=== PATIENT | female | born 1985 | race Caucasian/White ===

== ENCOUNTER 2023-08-07 15:02 | Emergency (ER) | payer OTHER, SELFPAY ==
[2023-08-07] VITALS (9 sets, daily range): BP systolic 137–160; BP diastolic 91–114; PULSE 80–106; RESP 16–20; TEMP 36.2–36.9; O2SAT 96–100
--- NOTE | ~2023-08-07 | CT_ITS ---
EXAMINATION: CT abdomen pelvis w con DATE: 08/07/2023 17:50 INDICATION: Right flank pain. TECHNIQUE: Computed tomography (CT) of the abdomen and pelvis was performed with 100 mL Omnipaque 350 intravenous contrast. Automated exposure control and iterative reconstruction technique were employe d. The dose-length product was 351.12 mGy-cm. COMPARISON: None. FINDINGS: The visualized portions of the lung bases demonstrate mild atelectasis. No pleural effusion . The heart size is normal. No pericardial effusion. The liver, gallbladder, spleen, pancreas, and ad renal glands are normal. There is a 3 mm stone in right kidney. There are cysts in left kidney measur ing up to 13 mm. There is cortical thinning of left kidney. There are no dilated loops of bowel. The appendix is normal. There are no pathologically enlarged lymph nodes. There is no free intraperitonea l fluid. There is mild thoracic and lumbar spondylosis. There is mild chronic height loss of multiple vertebral bodies. IMPRESSION: 1. No etiology for the patient's symptoms. Reviewed, dictated and finalized at location E.
--- NOTE | 2023-08-07 17:06 | ED.ABDPAIN ---
HPI - Abdominal Pain General Chief Complaint: Abdominal Pain <Nasir To PA-C - Last Filed: 08/07/23 17:08> Stated Complaint: kidney stone <Nasir To PA-C - Last Filed: 08/07/23 17:08> Time Seen by Provider: 08/07/23 17:06 <Nasir To PA-C - Last Filed: 08/07/23 17:08> Focused HPI: This is a 38-year-old female who presents to the ED with chief complaint of right flank pain beginning 3-4 days ago and worse today. Reports it has been increasing in severity. She does note some urinary urgency with difficulty fully voiding. Denies hematuria or dysuria. Reports chills but no recorded fevers. States she has had kidney stones in the past that got infected. Endorses nausea but no vomiting. Denies chest pain, shortness of breath, cough, diarrhea. GENERAL: Well-appearing, well-nourished, and in no acute distress. HEAD: Normocephalic, atraumatic. CHEST: Clear to auscultation. No respiratory distress. HEART: Regular rate and rhythm. ABD: Right flank tenderness present. Negative left flank tenderness. Soft, otherwise nontender NEURO: Alert and oriented x3. Patient screened in triage and initial orders placed. Additional care and disposition to be based upon diagnostic testing and treatment. <Nasir To PA-C - Last Filed: 08/07/23 17:08> Focused HPI: This is a 38-year-old female who presents to the ED with chief complaint of right flank pain beginning 3-4 days ago and worse today. Reports it has been increasing in severity. She does note some urinary urgency with difficulty fully voiding. Denies hematuria or dysuria. Reports chills but no recorded fevers. States she has had kidney stones in the past that got infected. Endorses nausea but no vomiting. Denies chest pain, shortness of breath, cough, diarrhea. GENERAL: Well-appearing, well-nourished, and in no acute distress. HEAD: Normocephalic, atraumatic. CHEST: Clear to auscultation. No respiratory distress. HEART: Regular rate and rhythm. ABD: Right flank tenderness present. Negative left flank tenderness. Soft, otherwise nontender NEURO: Alert and oriented x3. Patient screened in triage and initial orders placed. Additional care and disposition to be based upon diagnostic testing and treatment. <Mel Escobar MD - Last Filed: 08/07/23 20:30> Source: patient <Nasir To PA-C - Last Filed: 08/07/23 17:08> Mode of arrival: ambulatory <Nasir To PA-C - Last Filed: 08/07/23 17:08> Limitations: no limitations <Nasir To PA-C - Last Filed: 08/07/23 17:08> Related Data Allergies/Adverse Reactions: Allergies Allergy/AdvReac Type Severity Reaction Status Date / Time adhesive tape AdvReac Rash Verified 08/07/23 17:27 droperidol AdvReac Other Verified 08/07/23 17:27 sulfamethoxazole AdvReac Nausea and Verified 08/07/23 17:25 [From Bactrim] Vomiting trimethoprim [From Bactrim] AdvReac Nausea and Verified 08/07/23 17:25 Vomiting <Nasir To PA-C - Last Filed: 08/07/23 17:08> Review of Systems Review of Systems: All systems are reviewed and are negative unless stated otherwise in the HPI. <Mel Escobar MD - Last Filed: 08/07/23 20:30> Exam Narrative: General: Alert, awake, afebrile, in no acute distress. HEENT: PERRL, no rhinorrhea, no post nasal drip, oropharynx clear. Neck: Trachea midline, no JVD, no lymphadenopathy. Cardiovascular: Regular rate and rhythm, no murmurs, rubs or gallops, no peripheral edema. Respiratory: Clear to auscultation bilaterally, no tachypnea, no wheezing, no rhonchi, no rubs, no respiratory distress. Abdomen: Soft, nontender, nondistended, no rebound, no guarding, no peritoneal signs. Musculoskeletal: No joint swelling or deformity, normal muscle tone, right thoracic region paraspinal reproducible tenderness to palpation. Skin: No rashes or petechia, no signs of infection. Psychiatric: Alert and oriented, normal behavior and judgment for
[2023-08-07 17:18] LABS: Basophils Absolute Auto 0.1 K/mm3 (0.0-0.1); Basophils Percent Auto 0.5 % (0.2-1.2); Eosinophils Absolute Auto 0.1 K/mm3 (0-0.3); Eosinophils Percent Auto 0.7 % (0-4.4); Hematocrit 40.2 % (37.0-47.0); Hemoglobin 13.3 g/dL (12.0-15.0); Immature Granulocyte Absolute 0.13 K/mm3 (0.00-0.031); Immature Granulocyte Percent A 0.7 % (0-0.5); Lymphocytes Absolute Auto 4.85 K/mm3 (0.9-3.2); Lymphocytes Percent Auto 25.6 % (18.3-44.2); Mean Corpuscular HGB Conc 33.1 g/dl (32-36); Mean Corpuscular Volume 93.7 fl (80-100); Mean Platelet Volume 10.3 fl (7.4-10.4); Monocytes Absolute Auto 1.2 K/mm3 (0.1-0.6); Monocytes Percent Auto 6.1 % (2.6-8.5); Neutrophils Absolute Auto 12.6 K/mm3 (1.3-6.7); Neutrophils Percent Auto 66.4 % (45.5-73.1); Platelet Count Result 375 k/mm3 (150-375); Red Blood Count 4.29 M/mm3 (4.2-5.4)
[2023-08-07] MEDS: ONDANSETRON INJ 4 MG/2 ML VIAL IV PUSH (17:20)
[2023-08-07 17:28] LABS: Alanine Aminotransferase 16 U/L (6-35); Albumin Level 4.7 g/dL (3.5-5.1); Alkaline Phosphatase 46 U/L (38-126); Anion Gap 7 mmol/L (4-12); Aspartate Amino Transferase 17 U/L (14-36); Bilirubin,Total 0.8 mg/dL (0.2-1.3); Blood Urea Nitrogen 9 mg/dL (7-17); Calcium 10.5 mg/dL (8.4-10.2); Carbon Dioxide 25 mmol/L (22-30); Chloride 106 mmol/L (98-107); Estimated CRCL calculation 107 ml/min; Estimated Glomerular Filt Rate > 60; Glucose 109 mg/dL (65-110); Lipase 148 U/L (23-300); Sodium 138 mmol/L (137-145)
[2023-08-07 17:29] LABS: Lactic Acid Reflex 1.3 mmol/L (0.7-2.0)
[2023-08-07 17:56] LABS: Appearance Urine Clear (Clear); Bilirubin Urine Negative (Negative); Blood Urine Negative (Negative); Color Urine Yellow (Yellow); Glucose Urine UA Negative (Negative); Ketones Urine Negative (Negative); Leukocyte Esterase Ur Negative LEU/UL (Negative); Nitrate Urine Negative (Negative); Protein Urine Negative (Negative); Specific Grav Ur 1.008 (1.001-1.035); Urobilinogen Urine 0.2 mg/dL (<2.0)
[2023-08-07 18:01] LABS: Add Urine Microscopic? NO
[2023-08-07] MEDS: KETOROLAC 15 MG/ML VIAL (*BKC) IV PUSH (20:25)
== END 2023-08-07 20:56 | disposition home or self-care (01) ==
PROVIDERS: Physician Assistant; Emergency Provider Emergency Medicine
DX: R10.9 Unspecified abdominal pain (principal)
CPT/HCPCS: 36415; 74177; 80053; 81003; 81025; 83605; 83690; 85025; 96374; 96375; 99284; J1885; J2405; Q9967

== ENCOUNTER 2023-08-28 15:03 | Emergency (ER) | payer OTHER, SELFPAY ==
[2023-08-28 15:13] VITALS: BP 146/95; PULSE 107; RESP 18; TEMP 37.4; O2SAT 100
[2023-08-28] MEDS: oxyCODONE/ACETAMINOPHEN (*CRX) 5-325 MG TABLET 1 TABLET PO (16:25)
--- NOTE | 2023-08-28 16:40 | ED.DENTAL ---
HPI - Dental/Oral General Chief complaint: Dental/Oral Stated complaint: headache requesting head CT Time Seen by Provider: 08/28/23 16:04 Related Data Home Medications Medication Instructions Recorded Confirmed alprazolam 0.5 mg tablet mg 08/28/23 08/28/23 cyanocobalamin (vitamin B-12) mcg 08/28/23 1,000 mcg/mL injection solution folic acid 1 mg tablet 08/28/23 hydrocodone 7.5 mg-acetaminophen tablet 08/28/23 325 mg tablet phentermine 37.5 mg tablet mg 08/28/23 Allergies Allergy/AdvReac Type Severity Reaction Status Date / Time adhesive tape AdvReac Rash Verified 08/28/23 16:27 droperidol AdvReac Other Verified 08/28/23 16:27 sulfamethoxazole AdvReac Nausea and Verified 08/28/23 16:27 [From Bactrim] Vomiting trimethoprim [From Bactrim] AdvReac Nausea and Verified 08/28/23 16:27 Vomiting Course Vital Signs Vital signs: Vital Signs Temperature 99.3 F 08/28/23 15:13 Pulse Rate 107 H 08/28/23 15:13 Respiratory Rate 18 08/28/23 15:13 Blood Pressure 146/95 H 08/28/23 15:13 Pulse Oximetry 100 08/28/23 15:13 Oxygen Delivery Room Air 08/28/23 15:13 Temperature 99.3 F 08/28/23 15:13 Pulse Rate 107 H 08/28/23 15:13 Respiratory Rate 18 08/28/23 15:13 Blood Pressure 146/95 H 08/28/23 15:13 Pulse Oximetry 100 08/28/23 15:13 Oxygen Delivery Room Air 08/28/23 15:13 Discharge Plan Discharge Clinical Impression: Dental abscess Patient Disposition: Home, Self-Care Condition: Stable Instructions: Antibiotic Form, Dental Abscess (ED) Additional Instructions: Return the ER if you have worsening pain, you cannot keep down food/water/medication, you lose consciousness, you have additional concerns. Please find a dentist to help care for your issue. Prescriptions: New oxycodone-acetaminophen [Percocet] 5-325 mg tablet 1 tablet PO Q6H PRN (Reason: pain) Qty: 14 0RF amoxicillin-pot clavulanate 875-125 mg tablet 1 tablet PO Q12H Qty: 20 0RF No Action phentermine 37.5 mg tablet alprazolam 0.5 mg tablet hydrocodone-acetaminophen 7.5-325 mg tablet cyanocobalamin (vitamin B-12) 1,000 mcg/mL solution folic acid 1 mg tablet Follow-up/Referrals: Dental Referral Line [Outside] - 1 Week Aide Jones DO [Primary Care Provider] - Stand Alone Forms: Work/School Release IP
== END 2023-08-28 17:00 | disposition home or self-care (01) ==
PROVIDERS: Emergency Provider Emergency Medicine; PCP Family Medicine
DX: K04.7 Periapical abscess without sinus (principal)
CPT/HCPCS: 99283; A9270

== ENCOUNTER 2023-11-29 17:12 | Emergency (ER) | payer OTHER, SELFPAY ==
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
[2023-11-29 17:24] VITALS: BP 125/96; PULSE 104; RESP 20; TEMP 36.7; O2SAT 100
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
[2023-11-29] MEDS: HYDROcodone/acetaminophen (*CRX) 5-325 MG TABLET 1 TAB PO (19:31)
--- NOTE | 2023-11-29 20:02 | PC.NURSE ---
PT CURRENTLY DOES NOT WANT ZOFRAN AT THIS TIME.
[2023-11-29 21:38] VITALS: BP 110/76; PULSE 72; RESP 14; TEMP 36.8; O2SAT 94
== END 2023-11-29 21:39 | disposition home or self-care (01) ==
PROVIDERS: Emergency Provider Student in an Organized Health Care Education/Training Program
DX: S06.0X0A Concussion without loss of consciousness, initial encounter (principal); S19.9XXA Unspecified injury of neck, initial encounter; Z98.1 Arthrodesis status; E53.8 Deficiency of other specified B group vitamins; Z86.2 Personal history of diseases of the blood and blood-forming organs and certain disorders involving the immune mechanism; V43.52XA Car driver injured in collision with other type car in traffic accident, initial encounter
CPT/HCPCS: 70450; 72125; 99284; A9270